=== PATIENT | male | born 1990 | race African-American/Black ===

== ENCOUNTER 2017-07-09 13:46 | Emergency (ER) | payer OTHER ==
[~2017-07-09] VITALS: Ht 177.8 cm; Wt 81.8 kg
[2017-07-09] MEDS ORDERED: TYLE325T5 PO (14:28)
[2017-07-09] MEDS ORDERED: IBUP200C10 PO (14:28)
--- NOTE | 2017-07-09 17:46 | REP ---
RIGHT LOWER EXTREMITY DOPPLER VENOUS ULTRASOUND: 07/09/2017 Comparison: None. Clinical history: Pain and swelling right lower extremity. Evaluate for DVT. Technique: The deep venous system of the right lower extremity is evaluated with guzman scale imaging, compression ultrasound, color imaging and duplex Doppler interrogation. Examination from the groin through the popliteal fossa into the proximal calf. Findings: There is full compressibility from the common femoral vein in the inguinal region through the popliteal vein. Color imaging confirms patency throughout the course of the deep venous system. There is respiratory variation and augmented flow at all levels. Impression: 1. No Doppler venous ultrasound evidence of DVT in the right lower extremity. Signed by Wu Doty MD 07/09/2017 05:38 P
[2017-07-09 18:02] VITALS: BP 135/85
== END 2017-07-09 18:03 | disposition home or self-care (01) ==
LOC: M ED 13:46
DX: M25.561 Pain in right knee (principal)